=== PATIENT | female | born 1980 | race Two or more races ===

== ENCOUNTER 2017-10-31 18:58 | Emergency (ER) | payer SELFPAY ==
[2017-10-31 19:56] LABS: URINE HCG POC HCG NEGATIVE (Negative)
[2017-10-31 20:01] LABS: BILIRUBIN,URINE NEGATIVE (NEG); COLOR,URINE YELLOW; GLUCOSE,URINE NEGATIVE (NEG); NITRITE,URINE POSITIVE (NEG); PROTEIN,URINE NEGATIVE (NEG-TRACE)
[2017-10-31 20:06] LABS: CLARITY,URINE HAZY
[2017-10-31 20:09] LABS: BACTERIA,URINE MANY /HPF (0-FEW); RBC,URINE 0 /HPF (0-2); SQUAMOUS EPITHELIAL CELL,UR MANY /LPF
[2017-10-31] MEDS: IV NORMAL SALINE 1000ML BAG 1,000 ML IV (20:13)
[2017-10-31 20:14] LABS: ADD MAN DIFF? NO
[2017-10-31 20:18] LABS: BASO % 1 % (0-3); EOS # 0.2 x10^3/uL (0.0-0.7); EOS % 2 % (0-3); HEMATOCRIT 34.4 % (36.0-47.0); HEMOGLOBIN 12.3 g/dL (12.0-15.5); LYMPH # 1.8 x10^3/uL (1.0-4.8); LYMPH % 21 % (24-48); MEAN CORPUSCULAR HEMOGLOBIN 30 pg (25-35); MEAN CORPUSCULAR HGB CONC 36 g/dL (31-37); MEAN CORPUSCULAR VOLUME 85 fL (79-100); MONO # 0.8 x10^3/uL (0.0-1.1); MONO % 9 % (0-9); NEUT # 5.9 x10^3uL (1.8-7.7); NEUT % 68 % (31-73); PLATELET COUNT 212 x10^3/uL (140-400); RED BLOOD COUNT 4.06 x10^6/uL (3.50-5.40); RED CELL DISTRIBUTION WIDTH 13.2 % (11.5-14.5); WHITE BLOOD COUNT 8.7 x10^3/uL (4.0-11.0)
[2017-10-31 20:26] LABS: ANION GAP 10 (6-14); BLOOD UREA NITROGEN 6 mg/dL (7-20); BUN/CREATININE RATIO 7 (6-20); CALCIUM 8.6 mg/dL (8.5-10.1); CARBON DIOXIDE 27 mmol/L (21-32); CHLORIDE 102 mmol/L (98-107); CREATININE 0.9 mg/dL (0.6-1.0); GFR 70.1; GLUCOSE 187 mg/dL (70-99); POTASSIUM 3.3 mmol/L (3.5-5.1); SODIUM 139 mmol/L (136-145)
[2017-10-31] MEDS: ONDANSETRON PF 4 MG/2 ML VIAL. IV (20:26)
[2017-10-31 20:32] LABS: ALBUMIN 3.5 g/dL (3.4-5.0); ALBUMIN/GLOBULIN RATIO 0.9 (1.0-1.7); ALK PHOS 68 U/L (46-116); ALT (SGPT) 27 U/L (14-59); AST (SGOT) 17 U/L (15-37); LIPASE 75 U/L (73-393); TOTAL BILIRUBIN 0.7 mg/dL (0.2-1.0); TOTAL PROTEIN 7.2 g/dL (6.4-8.2)
[2017-10-31] MEDS: LIDO:MAALOX 1:1 20 ML SINGLE DOSE. PO (21:20)
== END 2017-10-31 21:40 | disposition home or self-care (01) ==
LOC: ER 18:58
DX: R19.7 Diarrhea, unspecified (principal); R11.2 Nausea with vomiting, unspecified; R10.10 Upper abdominal pain, unspecified
CPT/HCPCS: 36415; 80053; 81001; 81025; 83690; 85025; 87086; 96361; 96374; 99284; J2405; J7030

== ENCOUNTER 2017-12-09 16:47 | Emergency (ER) | payer SELFPAY ==
[~2017-12-09] VITALS: Ht 157.5 cm; Wt 78.9 kg
[2017-12-09 17:10] VITALS: BP 118/58
[2017-12-09] MEDS ORDERED: NAPR-514 PO (17:41)
--- NOTE | 2017-12-09 17:41 | PHYS DOC ---
Past Medical History Past Medical History: No Pertinent History Additional Past Surgical Histo: L foot surgery Alcohol Use: None Drug Use: None Adult General Chief Complaint Chief Complaint: HAND PROBLEM HPI HPI Patient is a 37 year old female who presents to the ER with complaints of R hand and wrist pain for the last 4 days after working with her hands a lot in her current job. Denies any known injury. Really she rates her pain as 8 out of 10 on the pain scale. She reports that her only medical history is depression, and she has had surgery on her left ankle and foot previously. She is not taking any medications and is not allergic to any medications. She states that her second and third fingers of her right hand tingle and that the pain shoots up her arm with movement. Review of Systems Review of Systems Constitutional: Denies fever or chills [] Musculoskeletal: Reports R wrist pain and R hand pain without injury. Integument: Denies rash or skin lesions [] Neurologic: Denies headache or focal weakness; reports tingling in R 2nd and 3rd fingers. Allergies Allergies Allergies Coded Allergies Type Severity Reaction Last Updated Verified No Known Drug Allergies 10/31/17 No Physical Exam Physical Exam Constitutional: Well developed, well nourished, no acute distress, non-toxic appearance. [] HENT: Normocephalic, atraumatic, bilateral external ears normal, nose normal. [] Eyes: PERRLA, conjunctiva normal, no discharge. [] Skin: Warm, dry, no erythema, no rash. [] Extremities: No cyanosis, no clubbing, ROM intact, no edema; positive phalen's and Tinnel testing of RUE [] Neurologic: Alert and oriented X 3, normal motor function, normal sensory function, no focal deficits noted. [] Psychologic: Affect normal, judgement normal, mood normal. [] Current Patient Data Vital Signs Vital Signs Date Time Temp Pulse Resp B/P (MAP) Pulse Ox O2 Delivery O2 Flow Rate FiO2 12/09/17 17:10 98.8 82 16 118/58 (78) 97 Room Air 98.8 EKG EKG [] Radiology/Procedures Radiology/Procedures [] Course & Med Decision Making Course & Med Decision Making Pertinent Labs and Imaging studies reviewed. (See chart for details) Patient is a 37-year-old female who presents to emergency room with complaints of right hand and wrist pain for the last 4 days out any known injury. VSS, positive Tinnel's and Phalen's testing of RUE. Physical exam findings and patient history are consistent with carpal tunnel syndrome, treated as such. Patient verbalized an understanding of home care, medications, follow-up, and return to ED instructions and was in agreement with the plan of care. [] Dragon Disclaimer Dragon Disclaimer This electronic medical record was generated, in whole or in part, using a voice recognition dictation system. Departure Departure Impression: Primary Impression: Acute carpal tunnel syndrome of right wrist Disposition: HOME, SELF-CARE Condition: STABLE Referrals: NO PCP (PCP) ANSELMO HAWKINS MD Patient Instructions: Carpal Tunnel Syndrome, [id number] Additional Instructions: Wear the Velcro wrist splint that was provided. Fill the prescription and use as directed. May apply heat or ice to sore areas for comfort. Follow-up with Dr. Hawkins or your primary care doctor for further evaluation and treatment. Return to the emergency room if her symptoms worsen. Scripts Naproxen (NAPROXEN) 500 Mg Tablet 500 MG PO BID for 10 Days, #20 TAB 0 Refills Prov: ELOISE MAYFIELD DEBRANDER 12/09/17 ELOISE MAYFIELD DEBRANDER Dec 09, 2017 17:41
== END 2017-12-09 18:01 | disposition home or self-care (01) ==
LOC: ER 16:47
DX: G56.01 Carpal tunnel syndrome, right upper limb (principal); F32.9 Major depressive disorder, single episode, unspecified
CPT/HCPCS: 29125; 99283